=== PATIENT | male | born 1975 | race Caucasian/White ===

== ENCOUNTER 2020-09-18 13:01 | Outpatient (CLI) | payer OTHER ==
[2020-09-18] MEDS ORDERED: FEXO180T72 PO (13:29)
[2020-09-18] MEDS ORDERED: CHOL10003 PO (13:29)
[2020-09-18] MEDS ORDERED: MULT-658 PO (13:29)
[2020-09-18] MEDS ORDERED: [UNRECOGNIZED DRUG - OTHER] PO (13:29)
[2020-09-18] MEDS ORDERED: ASPI1TAB31 PO (13:29)
[2020-09-18] MEDS ORDERED: ALBU8.5H8 INH (13:29)
[2020-09-18] MEDS ORDERED: SERT100T32 PO (13:29)
[2020-09-18] MEDS ORDERED: CBD GUMMIES PO (13:29)
[2020-09-18 14:11] LABS: BASOPHILS % (AUTO) 1 % (0-1); EOSINOPHILS % (AUTO) 3 % (1-7); LYMPHOCYTES % (AUTO) 37 % (22-44); MEAN CORPUSCULAR HEMOGLOBIN 33.2 pg (27.5-34.5); MEAN CORPUSCULAR HGB CONC 35.2 g/dL (33.2-36.2); MONOCYTES % (AUTO) 6 % (2-9); NEUTROPHILS % (AUTO) 54 % (42-75); PLATELET COUNT 243 x10^3/uL (130-400); RED BLOOD COUNT 4.84 x10^6/uL (4.38-5.82); RED CELL DISTRIBUTION WIDTH 12.5 % (9.4-14.8)
[2020-09-18 14:13] LABS: MD NO
[2020-09-18 14:18] LABS: INTERNATIONAL NORMALIZED RATIO 0.98 (0.93-1.1); PROTHROMBIN TIME 10.5 Seconds (9.6-11.5)
[2020-09-18 14:20] LABS: ANION GAP 4 mmol/L (5-15); CALCIUM 9.2 mg/dL (8.5-10.1); CHLORIDE 107 mmol/L (98-107); CREATININE 1.09 mg/dL (0.7-1.3)
== END 2020-09-18 23:59 | disposition home or self-care (01) ==
LOC: STAR 13:01
PROVIDERS: ATTEND Neurological Surgery
DX: Z01.812 Encounter for preprocedural laboratory examination (principal); Z20.822 Contact with and (suspected) exposure to COVID-19; M54.16 Radiculopathy, lumbar region
CPT/HCPCS: 36415; 71046; 80048; 85025; 85610; 85730; 93005; U0003

== ENCOUNTER 2020-09-24 05:38 | Day surgery (SDC) | payer OTHER ==
[~2020-09-24] VITALS: Ht 177.8 cm; Wt 78.0 kg
[~2020-09-24 05:38] MED LIST: ALBU8.5H8 INH; ASPI1TAB31 PO; CBD GUMMIES PO; CHOL10003 PO; FEXO180T72 PO; MULT-658 PO; SERT100T32 PO; [UNRECOGNIZED DRUG - OTHER] PO
[2020-09-24] MEDS ORDERED: LACTATED RINGERS 1,000 ML IV SCH (06:30)
[2020-09-24] MEDS ORDERED: CHLORHEXIDINE 15 ML UDC MM ONE (06:30)
[2020-09-24] MEDS ORDERED: LIDOCAINE-MPF 1%, 2ML INFIL ONE (06:30)
[2020-09-24] MEDS ORDERED: EPINEPHRINE 1 MG/ML, 1ML ONE (07:06)
[2020-09-24] MEDS ORDERED: THROMBIN 20,000 UNIT VIAL TP ONE (07:06)
[2020-09-24] MEDS ORDERED: BACITRACIN 50,000 UNIT ONE (07:06)
[2020-09-24] MEDS ORDERED: BACITRACIN OINT 500U/GM, 15 GM ONE (07:06)
[2020-09-24] MEDS ORDERED: BUPIVACAINE/PF 0.5% ONE (07:06)
[2020-09-24] MEDS ORDERED: MIDAZOLAM 1 MG/ML, 2ML ONE (07:20)
[2020-09-24] MEDS ORDERED: FENTANYL PF 250 MCG/5ML ONE (07:20)
[2020-09-24] MEDS ORDERED: PROPOFOL 10 MG/ML, 20ML ONE (07:24)
[2020-09-24] MEDS ORDERED: ROCURONIUM 10MG/ML,5ML ONE (07:24)
[2020-09-24] MEDS ORDERED: SUCCINYLCHOLINE 20 MG/ML, 10ML ONE (07:25)
[2020-09-24] MEDS ORDERED: CEFAZOLIN 1,000 MG ONE ×2 (07:25)
[2020-09-24] MEDS ORDERED: ONDANSETRON 2MG/ML, 2ML ONE (07:25)
[2020-09-24] MEDS ORDERED: DEXAMETHASONE 4 MG/ML, 1ML ONE ×2 (07:25)
[2020-09-24] MEDS ORDERED: LIDOCAINE-MPF 2% ,5ML ONE (07:25)
[2020-09-24] MEDS ORDERED: ACETAMINOPHEN 500 MG TABLET PO ONE (07:30)
[2020-09-24] MEDS ORDERED: CHLORHEXIDINE 15 ML UDC PO ONE (07:30)
[2020-09-24] MEDS ORDERED: KETAMINE 10 MG/ML, 20ML ONE (07:31)
[2020-09-24] MEDS ORDERED: PROPOFOL 50 ML ONE (07:32)
[2020-09-24] MEDS ORDERED: ONDANSETRON 2MG/ML, 2ML IVPush PRN (08:30)
[2020-09-24] MEDS ORDERED: HYDROmorphone 1 MG/ML, 1ML INJ IVPush PRN (08:30)
[2020-09-24] MEDS ORDERED: hydrALAzine 20 MG/ML, 1ML IV PRN (08:30)
[2020-09-24] MEDS ORDERED: OXYcodone 5 MG/5 ML ORAL.SOL UDC PO PRN (08:30)
[2020-09-24] MEDS ORDERED: METHOCARBAMOL 1,000 MG in DEXTROSE 5% 100 ML IV PRN (08:30)
[2020-09-24] MEDS ORDERED: METOCLOPRAMIDE 5 MG/ML, 2ML IVPush PRN (08:30)
[2020-09-24] MEDS ORDERED: PROMETHAZINE 25 MG/ML, 1ML IVPush PRN (08:30)
[2020-09-24] MEDS ORDERED: LABETALOL 5MG/ML, 20ML IV PRN (08:30)
[2020-09-24] MEDS ORDERED: MEPERIDINE/PF 25MG/0.5ML IVPush PRN (08:30)
[2020-09-24] MEDS ORDERED: DIPHENHYDRAMINE 50 MG/ML, 1ML IVPush PRN (08:30)
[2020-09-24] MEDS ORDERED: OXYcodone 5 MG/5 ML ORAL.SOL UDC ONE ×2 (09:55→10:03)
[2020-09-24] MEDS ORDERED: FENTANYL PF 100 MCG/2ML ONE ×2 (09:55→10:09)
[2020-09-24] MEDS: FENTANYL PF 100 MCG/2ML IV PRN ×4 (09:56→10:18)
[2020-09-24] MEDS ORDERED: MEPERIDINE/PF 25MG/ML,1ML ONE (10:20)
[2020-09-24] MEDS ORDERED: HYDR-3248 PO (11:30)
[2020-09-24] MEDS ORDERED: DOCU-131 PO (11:30)
[2020-09-24] MEDS ORDERED: METH750T87 PO (11:30)
== END 2020-09-24 11:40 | disposition home or self-care (01) ==
LOC: OUT 05:38
PROVIDERS: ATTEND Neurological Surgery
DX: M51.16 Intervertebral disc disorders with radiculopathy, lumbar region (principal); M48.061 Spinal stenosis, lumbar region without neurogenic claudication; J45.909 Unspecified asthma, uncomplicated; G43.909 Migraine, unspecified, not intractable, without status migrainosus; Z79.899 Other long term (current) drug therapy; Z88.6 Allergy status to analgesic agent; Z98.52 Vasectomy status; Z98.890 Other specified postprocedural states; Z82.49 Family history of ischemic heart disease and other diseases of the circulatory system; Z82.3 Family history of stroke; Z80.9 Family history of malignant neoplasm, unspecified
CPT/HCPCS: 63030; 63035; 63056; 72100; 95938; 95941; J0171; J0330; J0690; J1100; J2175; J2250; J2405; J2704; J2800; J3010; J7120